=== PATIENT | male | born 1945 | race Hispanic/Latino ===

== ENCOUNTER 2024-12-25 09:12 | Inpatient (IN) | payer MEDICARE, OTHER ==
[~2024-12-25] VITALS: Ht 188 cm; Wt 97.1 kg
[2024-12-25 14:05] LABS: BASOPHILS % 0.2 % (0.0-1.0); EOSINOPHILS % 0.0 % (0.0-6.0); LYMPHOCYTES % 2.3 % (18.0-39.1); MONOCYTES % 3.8 % (4.4-11.3); NEUTROPHILS % 93.2 % (38.7-80.0); RED CELL DISTRIBUTION WIDTH 13.8 % (11.7-14.4)
[2024-12-25] MEDS ORDERED: SODIUM CHLORIDE 0.9% 1000ML 1,000 ML ONE (14:07)
[2024-12-25] MEDS: ONDANSETRON HCL INJ 2MG/ML 2ML 2 MG/ML VIAL IV STA (14:09)
[2024-12-25] MEDS: SODIUM CHLORIDE 0.9% 1000ML 1,000 ML IV ONE (14:10)
[2024-12-25 14:27] LABS: EST GLOMERULAR FILTRATION RATE 45.0 ML/MIN (>=60)
[2024-12-25 14:54] LABS: ABG BASE EXCESS 0.0 mmol/L (-2 - 3); ABG HCO3 24 mmol/L (22-26); ABG OXYGEN SATURATION 98.0 % (95-98); ABG PCO2 30 mmHg (35-45); ABG PH 7.50 (7.35-7.45); ABG PO2 87 mmHg (80-105); ABG TCO2 24
[2024-12-25] MEDS ORDERED: SODIUM CHLORIDE FLUSH 10 ML SYR INJ PRN (15:30)
[2024-12-25] MEDS ORDERED: ONDANSETRON HCL INJ 2MG/ML 2ML 2 MG/ML VIAL IV PRN (15:30)
[2024-12-25 16:30] VITALS: PULSE 98; RESP 18; TEMP 102.3
[2024-12-25] MEDS: ACETAMINOPHEN 325 MG TAB PO ONE (17:02)
[2024-12-25 18:06] VITALS: BP 110/57; PULSE 91; RESP 19; TEMP 99.6; O2SAT 100
[2024-12-25 20:00] VITALS: BP 130/63; PULSE 84; RESP 15; TEMP 98.5; O2SAT 96
[2024-12-25] MEDS ORDERED: SEVOFLURANE INHAL SOLN 250 ML PEN BTL ONE (23:01)
[2024-12-26] VITALS (7 sets, daily range): BP systolic 101–142; BP diastolic 58–73; PULSE 86–91; RESP 16–20; TEMP 97.5–101.8; O2SAT 93–96
[2024-12-26 06:40] LABS: BASOPHILS % 0.1 % (0.0-1.0); EOSINOPHILS % 0.0 % (0.0-6.0); LYMPHOCYTES % 4.4 % (18.0-39.1); MONOCYTES % 9.4 % (4.4-11.3); NEUTROPHILS % 85.8 % (38.7-80.0); RED CELL DISTRIBUTION WIDTH 14.1 % (11.7-14.4)
[2024-12-26 07:28] LABS: EST GLOMERULAR FILTRATION RATE 43.0 ML/MIN (>=60)
[2024-12-26 11:57] LABS: NEUTROPHILS % (MANUAL) 90 % (40-74)
[2024-12-26 11:58] LABS: BAND NEUTROPHILS % (MANUAL) 1 %; LYMPHOCYTES % (MANUAL) 4 % (19-48); MONOCYTES % (MANUAL) 5 % (3.4-9.0); PLATELET ESTIMATE SLIGHTLY DECREASED; PLATELET MORPHOLOGY COMMENT NORMAL
[2024-12-26] MEDS ORDERED: ONDANSETRON HCL INJ 2MG/ML 2ML 2 MG/ML VIAL IV PRN (12:15)
[2024-12-26] MEDS ORDERED: HYDRALAZINE HCL 25 MG TAB PO PRN (12:15)
[2024-12-26] MEDS: ACETAMINOPHEN 325 MG TAB PO PRN (13:05)
[2024-12-26] MEDS: TAMSULOSIN HCL 0.4 MG CAP PO SCH (20:35)
[2024-12-27 04:00] VITALS: BP 132/79; PULSE 81; RESP 18; TEMP 99.2; O2SAT 94
[2024-12-27 06:53] LABS: BASOPHILS % 0.0 % (0.0-1.0); EOSINOPHILS % 0.2 % (0.0-6.0); LYMPHOCYTES % 6.3 % (18.0-39.1); MONOCYTES % 10.8 % (4.4-11.3); NEUTROPHILS % 82.3 % (38.7-80.0); RED CELL DISTRIBUTION WIDTH 14.1 % (11.7-14.4)
[2024-12-27 07:24] LABS: EST GLOMERULAR FILTRATION RATE 63.0 ML/MIN (>=60)
[2024-12-27 08:03] VITALS: BP 116/76; PULSE 73; RESP 18; TEMP 97.8; O2SAT 98
[2024-12-27 09:03] VITALS: BP 116/76; PULSE 73; RESP 18; TEMP 97.8; O2SAT 98
[2024-12-27 10:51] LABS: LYMPHOCYTES % (MANUAL) 5 % (19-48); MONOCYTES % (MANUAL) 5 % (3.4-9.0); NEUTROPHILS % (MANUAL) 90 % (40-74); PLATELET ESTIMATE SLIGHTLY DECREASED
[2024-12-27 10:52] LABS: PLATELET MORPHOLOGY COMMENT NORMAL
[2024-12-27 16:12] VITALS: BP 143/75; PULSE 71; RESP 18; TEMP 98.1; O2SAT 96
[2024-12-27 20:00] VITALS: BP 133/69; PULSE 74; RESP 18; TEMP 101.5; O2SAT 95
[2024-12-28] VITALS (9 sets, daily range): BP systolic 134–153; BP diastolic 76–86; PULSE 66–74; RESP 18–21; TEMP 97.9–99.4; O2SAT 94–97
[2024-12-28 05:39] LABS: BASOPHILS % 0.5 % (0.0-1.0); EOSINOPHILS % 3.2 % (0.0-6.0); LYMPHOCYTES % 8.6 % (18.0-39.1); MONOCYTES % 14.1 % (4.4-11.3); NEUTROPHILS % 73.4 % (38.7-80.0); RED CELL DISTRIBUTION WIDTH 13.8 % (11.7-14.4)
[2024-12-28 06:01] LABS: EST GLOMERULAR FILTRATION RATE 91.0 ML/MIN (>=60)
[2024-12-28] MEDS: CEFTRIAXONE 2 GM in SODIUM CHLORIDE 0.9% 100 ML IV SCH (09:29)
[2024-12-28] MEDS ORDERED: LOSARTAN POTASS25 MG PO (21:27)
[2024-12-28] MEDS ORDERED: ROSUVASTATIN CA40 MG PO (21:27)
[2024-12-28] MEDS ORDERED: ZETIA10 MG PO (21:28)
[2024-12-28] MEDS ORDERED: LEVOTHYROXINE25 MC1 (21:28)
[2024-12-28] MEDS ORDERED: FLOMAX0.4 MG PO (21:29)
[2024-12-28] MEDS ORDERED: METFORMIN HCL500 MG PO (21:30)
[2024-12-29 03:58] VITALS: BP 142/82; PULSE 66; TEMP 98.4; O2SAT 96
[2024-12-29 08:37] VITALS: BP 143/83; PULSE 70; RESP 16; TEMP 98.3; O2SAT 96
[2024-12-29 09:00] VITALS: BP 143/83; PULSE 70; RESP 16; TEMP 98.3; O2SAT 96
[2024-12-29 09:42] LABS: INR 0.89
[2024-12-29 09:59] LABS: % IRON SATURATION 13.0 % (15-50); LACTATE DEHYDROGENASE 192.0 IU/L (125-220)
[2024-12-29 10:57] LABS: HIV 1&2 AB SCREEN NON-REACTIVE (NONREACTIVE); HIV- 1 P24 AG SCREEN NON-REACTIVE (NONREACTIVE)
[2024-12-29 11:02] VITALS: BP 143/79; PULSE 72; RESP 18; TEMP 98.8; O2SAT 96
[2024-12-29 16:00] VITALS: BP 150/93; PULSE 62; RESP 20; TEMP 98.8; O2SAT 97
[2024-12-29 20:00] VITALS: BP 150/84; PULSE 61; RESP 18; TEMP 98.9; O2SAT 98
[2024-12-30] VITALS (8 sets, daily range): BP systolic 126–160; BP diastolic 75–88; PULSE 54–68; RESP 18–20; TEMP 97.4–98.5; O2SAT 94–100
[2024-12-30 05:47] LABS: BASOPHILS % 0.5 % (0.0-1.0); EOSINOPHILS % 6.2 % (0.0-6.0); LYMPHOCYTES % 22.3 % (18.0-39.1); MONOCYTES % 17.6 % (4.4-11.3); NEUTROPHILS % 52.4 % (38.7-80.0); RED CELL DISTRIBUTION WIDTH 13.7 % (11.7-14.4)
[2024-12-30 06:18] LABS: EST GLOMERULAR FILTRATION RATE 94.0 ML/MIN (>=60)
[2024-12-30] MEDS: CYANOCOBALAMIN 1,000 MCG TAB PO SCH (08:50)
[2024-12-30 09:29] LABS: EOSINOPHILS % (MANUAL) 4 % (0-7); LYMPHOCYTES % (MANUAL) 24 % (19-48); MONOCYTES % (MANUAL) 13 % (3.4-9.0); NEUTROPHILS % (MANUAL) 55 % (40-74); PLATELET ESTIMATE ADEQUATE; PLATELET MORPHOLOGY COMMENT NORMAL; RBC MORPHOLOGY COMMENT NORMAL; REACTIVE LYMPHOCYTES 4
[2024-12-31] VITALS (9 sets, daily range): BP systolic 140–164; BP diastolic 76–95; PULSE 63–87; RESP 17–19; TEMP 97.8–98.5; O2SAT 94–100
[2024-12-31 07:27] LABS: HAPTOGLOBIN 353 mg/dL (34-355)
[2025-01-01 05:52] LABS: BASOPHILS % 0.8 % (0.0-1.0); EOSINOPHILS % 4.3 % (0.0-6.0); LYMPHOCYTES % 15.4 % (18.0-39.1); MONOCYTES % 6.1 % (4.4-11.3); NEUTROPHILS % 72.5 % (38.7-80.0); RED CELL DISTRIBUTION WIDTH 14.5 % (11.7-14.4)
[2025-01-01 06:11] VITALS: BP 130/83; PULSE 72; RESP 16; TEMP 98.6; O2SAT 98
[2025-01-01 06:25] LABS: EST GLOMERULAR FILTRATION RATE 70.0 ML/MIN (>=60)
[2025-01-01 07:09] VITALS: BP 132/80; PULSE 69; RESP 20; TEMP 98; O2SAT 97
[2025-01-01] MEDS ORDERED: FINASTERIDE5 MG PO (09:25)
[2025-01-01 10:44] VITALS: BP 132/80; PULSE 69; RESP 20; TEMP 98; O2SAT 97
[2025-01-01] MEDS: TAMSULOSIN HCL 0.4 MG CAP PO SCH (13:00)
[2025-01-01 18:43] VITALS: BP 128/84; PULSE 64; RESP 18; TEMP 98.1; O2SAT 97
[2025-01-01 20:00] VITALS: BP_SYST 143; BP_DIAS 82; BP_DIAS 83; PULSE 74; RESP 18; RESP 19; TEMP 98.3; O2SAT 97
[2025-01-01] MEDS: FINASTERIDE 5 MG TAB PO SCH (21:02)
[2025-01-02] VITALS (7 sets, daily range): BP systolic 126–145; BP diastolic 72–96; PULSE 61–76; RESP 17–21; TEMP 97–98.2; O2SAT 95–98
[2025-01-02 06:35] LABS: BASOPHILS % 0.4 % (0.0-1.0); EOSINOPHILS % 8.7 % (0.0-6.0); LYMPHOCYTES % 24.0 % (18.0-39.1); MONOCYTES % 9.8 % (4.4-11.3); NEUTROPHILS % 54.1 % (38.7-80.0); RED CELL DISTRIBUTION WIDTH 13.7 % (11.7-14.4)
[2025-01-02 06:43] LABS: EST GLOMERULAR FILTRATION RATE 93.0 ML/MIN (>=60)
[2025-01-03 08:00] VITALS: BP 129/84; PULSE 70; RESP 18; TEMP 98.3; O2SAT 99
[2025-01-03 09:00] VITALS: BP 129/84; PULSE 70; RESP 18; TEMP 98.3; O2SAT 99
[2025-01-03 12:00] VITALS: BP 128/80; PULSE 83; RESP 19; TEMP 98; O2SAT 98
[2025-01-03 16:00] VITALS: BP 137/82; PULSE 71; RESP 19; TEMP 98.4; O2SAT 98
[2025-01-03 21:00] VITALS: BP 147/86; PULSE 69; RESP 18; TEMP 98.8; O2SAT 97
[2025-01-04 08:00] VITALS: BP 131/63; PULSE 71; RESP 18; TEMP 98.1; O2SAT 97
[2025-01-04 09:20] VITALS: BP 131/63; PULSE 71; RESP 18; TEMP 98.1; O2SAT 97
[2025-01-04 12:00] VITALS: BP 140/82; PULSE 76; RESP 19; TEMP 98.5; O2SAT 97
[2025-01-04 15:29] LABS: BASOPHILS % 0.2 % (0.0-1.0); EOSINOPHILS % 3.7 % (0.0-6.0); LYMPHOCYTES % 13.9 % (18.0-39.1); MONOCYTES % 8.6 % (4.4-11.3); NEUTROPHILS % 72.9 % (38.7-80.0); RED CELL DISTRIBUTION WIDTH 14.0 % (11.7-14.4)
[2025-01-04 16:01] LABS: EST GLOMERULAR FILTRATION RATE 85.0 ML/MIN (>=60)
[2025-01-04] MEDS ORDERED: LIDOCAINE HCL 2% LOCAL INJ 5 ML SDV VIAL INJ ONE (16:47)
[2025-01-04] MEDS ORDERED: ROCURONIUM BROMIDE 1 ML IV ONE ×2 (16:48→16:50)
[2025-01-04] MEDS ORDERED: FENTANYL CITRATE/PF 100MCG/2 ML INJ ONE ×2 (16:48→17:47)
[2025-01-04] MEDS ORDERED: PROPOFOL IV EMULSION 10 MG/ML 20 ML VIAL ONE ×3 (16:48→18:48)
[2025-01-04] MEDS ORDERED: ACETAMINOPHEN 1000 MG/100 ML 100 ML IV ONE (17:37)
[2025-01-04] MEDS ORDERED: ONDANSETRON HCL INJ 2MG/ML 2ML 2 MG/ML VIAL ONE (19:01)
[2025-01-04] MEDS ORDERED: EPHEDRINE SULFATE INJ 50 MG/ML VIAL ONE (19:05)
[2025-01-04] MEDS ORDERED: ACETAMINOPHEN 1000 MG/100 ML IV PRN (19:15)
[2025-01-04] MEDS ORDERED: ACETAMINOPHEN/CODEINE 300MG - 30MG TAB PO PRN (19:15)
[2025-01-04] MEDS ORDERED: DIPHENHYDRAMINE HCL 25 MG CAP PO PRN (19:15)
[2025-01-04 19:36] LABS: BASOPHILS % 0.3 % (0.0-1.0); EOSINOPHILS % 2.7 % (0.0-6.0); LYMPHOCYTES % 13.8 % (18.0-39.1); MONOCYTES % 4.5 % (4.4-11.3); NEUTROPHILS % 77.3 % (38.7-80.0); RED CELL DISTRIBUTION WIDTH 14.1 % (11.7-14.4)
[2025-01-04 20:00] VITALS: BP 109/59; PULSE 75; RESP 18; TEMP 98; O2SAT 100
[2025-01-04 20:11] LABS: EST GLOMERULAR FILTRATION RATE 85.0 ML/MIN (>=60)
[2025-01-04] MEDS: SODIUM CHLORIDE 0.9% 1000ML 1,000 ML IV SCH (20:42)
[2025-01-04 22:30] VITALS: BP 109/59; PULSE 75; RESP 18; TEMP 98; O2SAT 100
[2025-01-05] VITALS (12 sets, daily range): BP systolic 102–121; BP diastolic 61–79; PULSE 53–88; RESP 16–20; TEMP 97.6–98.6; O2SAT 96–100
[2025-01-05 05:40] LABS: BASOPHILS % 0.1 % (0.0-1.0); EOSINOPHILS % 0.0 % (0.0-6.0); LYMPHOCYTES % 4.7 % (18.0-39.1); MONOCYTES % 5.9 % (4.4-11.3); NEUTROPHILS % 88.4 % (38.7-80.0); RED CELL DISTRIBUTION WIDTH 14.1 % (11.7-14.4)
[2025-01-05 06:01] LABS: EST GLOMERULAR FILTRATION RATE 83.0 ML/MIN (>=60)
[2025-01-05 07:33] LABS: HEPATITIS A ANTIBODY IGM (P) Negative; HEPATITIS B CORE IGM (P) Negative; HEPATITIS B SURFACE AG (P) Negative
[2025-01-05 07:34] LABS: FOLATE (REF LAB) 5.4
[2025-01-05] MEDS: SENNA-S TABLET PO SCH (08:24)
[2025-01-05] MEDS: PHENAZOPYRIDINE HCL 100 MG TAB PO PRN (08:24)
[2025-01-05] MEDS: GENTAMICIN 80MG/NS 100 ML 200 ML IV ONE (11:55)
[2025-01-06] VITALS (8 sets, daily range): BP systolic 115–138; BP diastolic 60–76; PULSE 69–81; RESP 18–20; TEMP 97.9–98.6; O2SAT 97–98
[2025-01-06 05:34] LABS: BASOPHILS % 0.1 % (0.0-1.0); EOSINOPHILS % 2.3 % (0.0-6.0); LYMPHOCYTES % 14.6 % (18.0-39.1); MONOCYTES % 9.6 % (4.4-11.3); NEUTROPHILS % 72.8 % (38.7-80.0); RED CELL DISTRIBUTION WIDTH 14.2 % (11.7-14.4)
[2025-01-06 06:02] LABS: EST GLOMERULAR FILTRATION RATE 87.0 ML/MIN (>=60)
[2025-01-07] VITALS (11 sets, daily range): BP systolic 123–149; BP diastolic 65–80; PULSE 71–79; RESP 18–20; TEMP 97.7–98.9; O2SAT 96–98
[2025-01-07 05:54] LABS: BASOPHILS % 0.2 % (0.0-1.0); EOSINOPHILS % 4.2 % (0.0-6.0); LYMPHOCYTES % 19.2 % (18.0-39.1); MONOCYTES % 10.6 % (4.4-11.3); NEUTROPHILS % 64.9 % (38.7-80.0); RED CELL DISTRIBUTION WIDTH 14.3 % (11.7-14.4)
[2025-01-07 06:37] LABS: EST GLOMERULAR FILTRATION RATE 90.0 ML/MIN (>=60)
[2025-01-07 13:37] LABS: ABG BASE EXCESS 0.0 mmol/L (-2 - 3); ABG HCO3 24 mmol/L (22-26); ABG OXYGEN SATURATION 98.0 % (95-98); ABG PCO2 30 mmHg (35-45); ABG PH 7.50 (7.35-7.45); ABG PO2 87 mmHg (80-105); ABG TCO2 24
[2025-01-08] VITALS (11 sets, daily range): BP systolic 107–143; BP diastolic 58–81; PULSE 70–81; RESP 18–20; TEMP 98.6–99.7; O2SAT 94–99
[2025-01-08 05:36] LABS: BASOPHILS % 0.3 % (0.0-1.0); EOSINOPHILS % 2.8 % (0.0-6.0); LYMPHOCYTES % 19.0 % (18.0-39.1); MONOCYTES % 9.3 % (4.4-11.3); NEUTROPHILS % 68.2 % (38.7-80.0); RED CELL DISTRIBUTION WIDTH 14.2 % (11.7-14.4)
[2025-01-08 05:57] LABS: EST GLOMERULAR FILTRATION RATE 91.0 ML/MIN (>=60)
[2025-01-08] MEDS ORDERED: DEXTROSE 50% SYRINGE 50 ML IV PRN (09:15)
[2025-01-08] MEDS: BUSPIRONE HCL 5 MG TAB PO SCH (10:43)
[2025-01-08] MEDS: METFORMIN HCL 500 MG TAB PO SCH (10:43)
[2025-01-08] MEDS: LEVOTHYROXINE SODIUM 25 MCG TABLET PO SCH (10:46)
[2025-01-08] MEDS: INSULIN LISPRO 100 UNIT/1 ML 3ML VIAL SQ SCH (11:37)
[2025-01-09] VITALS (10 sets, daily range): BP systolic 120–133; BP diastolic 61–88; PULSE 70–83; RESP 18–19; TEMP 97.8–98.7; O2SAT 96–100
[2025-01-09] MEDS: EZETIMIBE 10 MG TAB PO SCH (08:58)
[2025-01-09] MEDS ORDERED: ACETAMINOPHEN/CODEINE 300MG - 30MG TAB PO PRN (15:15)
[2025-01-10 04:35] VITALS: BP 131/80; PULSE 73; RESP 20; TEMP 98.4; O2SAT 96
[2025-01-10 06:44] LABS: BASOPHILS % 0.3 % (0.0-1.0); EOSINOPHILS % 4.4 % (0.0-6.0); LYMPHOCYTES % 22.1 % (18.0-39.1); MONOCYTES % 10.1 % (4.4-11.3); NEUTROPHILS % 62.4 % (38.7-80.0); RED CELL DISTRIBUTION WIDTH 14.2 % (11.7-14.4)
[2025-01-10 07:09] LABS: EST GLOMERULAR FILTRATION RATE 80.0 ML/MIN (>=60)
[2025-01-10 07:31] VITALS: PULSE 65; RESP 21; O2SAT 98
[2025-01-10 08:45] VITALS: BP 131/67; PULSE 72; RESP 18; TEMP 97.8; O2SAT 98
[2025-01-10 09:30] VITALS: BP 131/67; PULSE 72; RESP 18; TEMP 97.8; O2SAT 96
[2025-01-10 17:32] VITALS: BP 139/77; PULSE 72; RESP 18; TEMP 98.2; O2SAT 100
== END 2025-01-10 20:30 | disposition home or self-care (01) | DRG 665 ==
LOC: ER 10:57 → ERHOLD 15:30 → MED/SURG2 18:06 → OBSVTOIN 12-26 12:55
PROVIDERS: ADMIT Internal Medicine; ATTEND Internal Medicine
PROC: 0T9B70Z Drainage of Bladder with Drainage Device, Via Natural or Artificial Opening (ICD-10-PCS; 2024-12-26)
PROC: 0VT08ZZ Resection of Prostate, Via Natural or Artificial Opening Endoscopic (ICD-10-PCS; principal; 2025-01-04 16:47)
PROC: BT141ZZ Fluoroscopy of Kidneys, Ureters and Bladder using Low Osmolar Contrast (ICD-10-PCS; 2025-01-04 16:47)
DX: T83.518A Infection and inflammatory reaction due to other urinary catheter, initial encounter (principal); A41.89 Other specified sepsis; D62 Acute posthemorrhagic anemia; N13.8 Other obstructive and reflux uropathy; D68.9 Coagulation defect, unspecified; N13.6 Pyonephrosis; E87.3 Alkalosis; T83.098A Other mechanical complication of other urinary catheter, initial encounter; R33.9 Retention of urine, unspecified; R31.0 Gross hematuria; D64.9 Anemia, unspecified; N40.1 Benign prostatic hyperplasia with lower urinary tract symptoms; D69.6 Thrombocytopenia, unspecified; B96.1 Klebsiella pneumoniae [K. pneumoniae] as the cause of diseases classified elsewhere; E53.8 Deficiency of other specified B group vitamins; N32.89 Other specified disorders of bladder; N32.3 Diverticulum of bladder; F41.9 Anxiety disorder, unspecified
CPT/HCPCS: 36415; 51703; 70450; 74176; 74420; 80048; 80053; 82607; 82728; 82746; 82805; 82948; 83010; 83036; 83540; 83605; 83615; 83735; 84152; 84466; 85025; 85045; 85610; 85730; 87040; 87071; 87086; 87186; 87205; 87390; 88305; 93005; 94799; 99285; C1758; G0378; G0433; G0435; J0692; J0696; J1580; J2003; J2405; J7030; J7050